=== PATIENT | female | born 1935 | race African-American/Black ===

== ENCOUNTER 2022-04-05 10:18 | Inpatient (IN) | payer MEDICARE ==
[2022-04-05 10:49] VITALS: BMI 30.7
[2022-04-05] MEDS ORDERED: Ondansetron PF 4 MG/2 ML Vial IVP PRN (14:53)
[2022-04-05] MEDS ORDERED: Ondansetron ODT 4 MG TAB PO PRN (14:53)
[2022-04-05] MEDS ORDERED: Nitroglycerin 0.4 MG TAB (25 Tab Bottle) SL PRN (14:57)
[2022-04-05] MEDS ORDERED: Hydrochlorothiazide 25 MG TAB PO SCH (15:00)
[2022-04-05] MEDS: Acetaminophen 325 MG TAB PO PRN (20:26)
[2022-04-05] MEDS: Atorvastatin Calcium 10 MG TAB PO SCH (20:27)
[2022-04-05] MEDS: Donepezil HCl 5 MG TAB PO SCH (20:27)
[2022-04-05] MEDS: Carvedilol 6.25 MG TAB PO SCH (20:28)
[2022-04-05] MEDS ORDERED: Pravastatin Sodium 20 MG TAB PO SCH (21:00)
[2022-04-06 09:22] LABS: ALT (SGPT) 8 U/L (8-55); AST (SGOT) 13 U/L (5-34); Albumin 3.4 g/dL (3.4-4.8); Alkaline Phosphatase 59 U/L (40-110); Anion Gap 14 mmol/L (10-20); BUN (Urea Nitrogen) 14 mg/dL (9.8-20.1); Bilirubin, Total 0.7 mg/dL (0.2-1.2); Calc. Creatinine Clearance 54 mL/min (70-130); Calcium 9.5 mg/dL (7.8-10.44); Carbon Dioxide 29 mmol/L (23-31); Chloride 101 mmol/L (98-107); Estimated GFR 55; Globulin 3.3 g/dL (2.4-3.5); Glucose 103 mg/dL (83-110); Potassium 3.3 mmol/L (3.5-5.1); Protein, Total 6.7 g/dL (5.8-8.1); Sodium 141 mmol/L (136-145)
[2022-04-06] MEDS: NIFEdipine XL 60 MG TAB PO SCH (09:37)
[2022-04-06] MEDS: Hydrochlorothiazide 25 MG TAB PO SCH (09:37)
[2022-04-06] MEDS: Aspirin 81 mg Enteric Coated Tablet PO SCH (09:37)
[2022-04-06] MEDS: Carvedilol 6.25 MG TAB PO SCH ×2 (09:37→20:31)
[2022-04-06] MEDS ORDERED: Potassium Chloride 20 MEQ TAB PO SCH (10:00)
[2022-04-06 13:11] LABS: Hemoglobin A1c 5.5 % (4.0-6.0)
[2022-04-06] MEDS: Acetaminophen 325 MG TAB PO PRN (20:30)
[2022-04-06] MEDS: Donepezil HCl 5 MG TAB PO SCH (20:31)
[2022-04-06] MEDS: Atorvastatin Calcium 10 MG TAB PO SCH (20:31)
[2022-04-07 04:51] LABS: #Eosinphils 0.1 10x3/uL (0.0-0.5); #Monocytes 0.9 10x3/uL (0.0-1.1); #Neutrophils 7.4 10x3/uL (1.5-8.4); %Basophils 0.3 % (0.0-2.0); %Eosinophils 0.6 % (0.0-6.0); %Lymphocytes 18.6 % (18.0-47.0); %Monocytes 8.3 % (0.0-10.0); %Neutrophils 71.9 % (40.0-75.0); Hemoglobin 12.4 g/dL (12.0-15.5); Mean Corpuscular HGB CONC 33.6 g/dL (32.0-36.0); Mean Corpuscular Hemoglobin 29.1 pg (27.0-33.0); Mean Corpuscular Volume 86.6 fl (81.6-98.3); Mean Platelet Volume 9.3 fl (7.4-10.4); Platelet Count 260 10x3/uL (150-450); RBC Distribution Width 14.4 % (11.5-14.5); Red Blood Cell (RBC) Count 4.26 10x6/uL (3.90-5.03); White Blood Cell (WBC) Count 10.4 10x3/uL (3.5-10.5)
[2022-04-07 05:09] LABS: ALT (SGPT) 8 U/L (8-55); AST (SGOT) 13 U/L (5-34); Albumin 3.4 g/dL (3.4-4.8); Alkaline Phosphatase 60 U/L (40-110); Anion Gap 12 mmol/L (10-20); BUN (Urea Nitrogen) 17 mg/dL (9.8-20.1); Bilirubin, Total 0.8 mg/dL (0.2-1.2); Calc. Creatinine Clearance 60 mL/min (70-130); Calcium 9.2 mg/dL (7.8-10.44); Carbon Dioxide 28 mmol/L (23-31); Cardiac Risk 3.2 (Less than 4.5); Chloride 101 mmol/L (98-107); Cholesterol 141 mg/dl (< 200 Desired); Estimated GFR 62; Globulin 3.1 g/dL (2.4-3.5); Glucose 106 mg/dL (83-110); HDL Cholesterol 44 mg/dL (>60 Neg Risk); LDL Cholesterol, Calculated 82 mg/dL; Magnesium 1.9 mg/dL (1.6-2.6); Potassium 3.4 mmol/L (3.5-5.1); Protein, Total 6.5 g/dL (5.8-8.1); Sodium 138 mmol/L (136-145); Triglycerides 77 mg/dL (Less than 150)
[2022-04-07] MEDS ORDERED: Potassium Chloride 20 MEQ TAB PO SCH (08:00)
[2022-04-07] MEDS: Aspirin 81 mg Enteric Coated Tablet PO SCH (08:51)
[2022-04-07] MEDS: Hydrochlorothiazide 25 MG TAB PO SCH (08:51)
[2022-04-07] MEDS: NIFEdipine XL 60 MG TAB PO SCH (08:51)
[2022-04-07] MEDS: Carvedilol 6.25 MG TAB PO SCH ×2 (08:51→20:54)
[2022-04-07] MEDS ORDERED: Potassium Chloride 40 MEQ in Premix Bag 1 BAG IVPB SCH (09:00)
[2022-04-07] MEDS: Atorvastatin Calcium 10 MG TAB PO SCH (20:55)
[2022-04-07] MEDS: Donepezil HCl 5 MG TAB PO SCH (20:55)
[2022-04-08 06:08] LABS: #Eosinphils 0.1 10x3/uL (0.0-0.5); #Monocytes 0.7 10x3/uL (0.0-1.1); #Neutrophils 5.7 10x3/uL (1.5-8.4); %Basophils 0.5 % (0.0-2.0); %Eosinophils 1.3 % (0.0-6.0); %Lymphocytes 17.5 % (18.0-47.0); %Monocytes 9.2 % (0.0-10.0); %Neutrophils 71.4 % (40.0-75.0); Hemoglobin 12.2 g/dL (12.0-15.5); Mean Corpuscular HGB CONC 33.4 g/dL (32.0-36.0); Mean Corpuscular Hemoglobin 29.3 pg (27.0-33.0); Mean Corpuscular Volume 87.5 fl (81.6-98.3); Mean Platelet Volume 9.3 fl (7.4-10.4); Platelet Count 218 10x3/uL (150-450); RBC Distribution Width 14.4 % (11.5-14.5); Red Blood Cell (RBC) Count 4.17 10x6/uL (3.90-5.03); White Blood Cell (WBC) Count 7.9 10x3/uL (3.5-10.5)
[2022-04-08 06:16] LABS: ALT (SGPT) 8 U/L (8-55); AST (SGOT) 12 U/L (5-34); Albumin 3.4 g/dL (3.4-4.8); Alkaline Phosphatase 62 U/L (40-110); Anion Gap 14 mmol/L (10-20); BUN (Urea Nitrogen) 17 mg/dL (9.8-20.1); Bilirubin, Total 0.5 mg/dL (0.2-1.2); Calc. Creatinine Clearance 57 mL/min (70-130); Calcium 9.2 mg/dL (7.8-10.44); Carbon Dioxide 28 mmol/L (23-31); Chloride 101 mmol/L (98-107); Estimated GFR 59; Globulin 3.1 g/dL (2.4-3.5); Glucose 99 mg/dL (83-110); Potassium 3.6 mmol/L (3.5-5.1); Protein, Total 6.5 g/dL (5.8-8.1); Sodium 139 mmol/L (136-145)
[2022-04-08] MEDS: NIFEdipine XL 60 MG TAB PO SCH ×2 (09:07→10:59)
[2022-04-08] MEDS: Carvedilol 6.25 MG TAB PO SCH (09:07)
[2022-04-08] MEDS: Hydrochlorothiazide 25 MG TAB PO SCH (09:07)
[2022-04-08] MEDS: Aspirin 81 mg Enteric Coated Tablet PO SCH (09:07)
[2022-04-08] MEDS ORDERED: Aspirin Chewable 81 MG TAB PO SCH (11:00)
[2022-04-08] MEDS ORDERED: Isosorbide Mononitrate 20 MG TAB PO SCH ×2 (11:00→21:00)
[2022-04-08] MEDS ORDERED: Potassium Citrate 1100-334mg/5ml Oral Solution PO SCH (11:00)
[2022-04-08] MEDS ORDERED: Amlodipine 5 MG TAB PO SCH (12:00)
[2022-04-08 17:05] VITALS: BP 144/80; TEMP 98
[2022-04-08] MEDS ORDERED: NIFEdipine 10 MG CAP PO SCH (21:00)
[2022-04-09] MEDS ORDERED: Amlodipine 5 MG TAB PO SCH (09:00)
[2022-04-09] MEDS ORDERED: Potassium Citrate 1100-334mg/5ml Oral Solution PO SCH (09:00)
[2022-04-09] MEDS ORDERED: Aspirin Chewable 81 MG TAB PO SCH (09:00)
== END 2022-04-08 19:24 | DRG 917 ==
LOC: UNDOADMIN 10:18 → CSHTELE 10:18
PROVIDERS: ADMIT Family Medicine; ATTEND Internal Medicine
DX: T43.3X1A Poisoning by phenothiazine antipsychotics and neuroleptics, accidental (unintentional), initial encounter (principal); G92.8 Other toxic encephalopathy; F03.90 Unspecified dementia, unspecified severity, without behavioral disturbance, psychotic disturbance, mood disturbance, and anxiety; I10 Essential (primary) hypertension; I73.9 Peripheral vascular disease, unspecified; E78.5 Hyperlipidemia, unspecified; G89.29 Other chronic pain; I25.10 Atherosclerotic heart disease of native coronary artery without angina pectoris; E87.6 Hypokalemia; Z20.822 Contact with and (suspected) exposure to COVID-19; M19.011 Primary osteoarthritis, right shoulder; M75.101 Unspecified rotator cuff tear or rupture of right shoulder, not specified as traumatic; Z88.0 Allergy status to penicillin; Z88.5 Allergy status to narcotic agent; Z91.013 Allergy to seafood; Z88.8 Allergy status to other drugs, medicaments and biological substances; Z79.82 Long term (current) use of aspirin; Z95.5 Presence of coronary angioplasty implant and graft; Z90.49 Acquired absence of other specified parts of digestive tract; Z86.73 Personal history of transient ischemic attack (TIA), and cerebral infarction without residual deficits; Y92.9 Unspecified place or not applicable; Z79.899 Other long term (current) drug therapy
CPT/HCPCS: 36415; 70551; 80053; 80061; 83036; 83735; 84443; 85025; 93880; 94760; U0003; U0005